=== PATIENT | male | born 1995 | race Caucasian/White ===

== ENCOUNTER 2018-06-02 18:38 | Emergency (ER) | payer BC ==
[~2018-06-02] VITALS: Ht 170.1 cm; Wt 77.1 kg
[~2018-06-02 18:38] MED LIST: CLARITIN10 MG PO; MOTRIN800 MG PO; ULTRAM50 MG PO; ZITHROMAX Z PA250 MG PO
== END 2018-06-02 19:49 | disposition home or self-care (01) ==
LOC: ED 18:38
DX: L50.9 Urticaria, unspecified (principal)

== ENCOUNTER 2018-06-18 17:08 | Emergency (ER) | payer BC ==
[~2018-06-18] VITALS: Ht 170.1 cm; Wt 77.1 kg
[2018-06-18 17:44] LABS: BASO % 0.3 % (0.0-1.0); EOS # 0.1 10*3/uL (0.0-0.4); EOS % 0.8 % (1.0-4.0); HEMATOCRIT 41.9 % (42.0-52.0); HEMOGLOBIN 13.7 g/dl (14.0-18.0); LYMPH # 1.4 10*3/uL (1.3-4.4); LYMPH % 13.2 % (27.0-41.0); MEAN CORPUSCULAR HGB 27.1 pg (27.0-31.0); MEAN CORPUSCULAR HGB CONC 32.7 g/dl (33.0-37.0); MEAN PLATELET VOLUME 11.2 fl (9.6-12.3); MONO # 0.8 10*3/uL (0.1-1.0); MONO % 7.1 % (3.0-9.0); NEUT # 8.5 10*3/uL (2.3-7.9); NEUT % 78.4 % (47.0-73.0); PLATELET COUNT AUTOMATED 241 10*3/uL (130-400); RED BLOOD COUNT 5.05 10*6/uL (4.50-5.90); RED CELL DISTRI WIDTH 12.7 % (0-14.5); WHITE BLOOD COUNT 10.9 10*3/uL (4.8-10.8)
[2018-06-18 18:03] LABS: ALBUMIN 4.3 gm/dl (3.1-4.5); ALKALINE PHOSPHATASE 112 U/L (45-117); BUN 19 mg/dl (7-24); CHLORIDE 106 mmol/L (98-107); CREATININE 0.94 mg/dL (0.70-1.30); SGOT/AST 9 IU/L (3-35); SGPT/ALT 18 U/L (12-78); SODIUM 140 mmol/L (136-145); TOTAL PROTEIN 8.2 gm/dL (6.4-8.2)
[2018-06-18] MEDS ORDERED: VALTREX1000 MG PO (19:23)
[2018-06-18] MEDS ORDERED: VIBRAMYCIN100 MG PO (19:23)
[2018-06-18] MEDS ORDERED: PREDNISONE10 MG PO (19:23)
[2018-06-23 11:03] LABS: IGG P18 AB Present (.); IGG P23 AB Present (.); IGG P28 AB Absent (.); IGG P30 AB Absent (.); IGG P39 AB Absent (.); IGG P41 AB Present (.); IGG P45 AB Absent (.); IGG P58 AB Absent (.); IGG P63 AB Absent (.); IGG P66 AB Absent (.); IGM P23 AB Present (.); IGM P39 AB Absent (.); IGM P41 AB Present (.); LYME IGG WB INTERPRETATION Negative (.); LYME IGM WB INTERPRETATION Positive (.)
[2018-06-23 12:10] LABS: LYME REFLEX CHARGE CHG
== END 2018-06-18 19:30 | disposition home or self-care (01) ==
LOC: ED 17:08
PROVIDERS: Physician Assistant
DX: G51.0 Bell's palsy (principal); M54.5 Low back pain

== ENCOUNTER 2022-12-31 22:35 | Inpatient (IN) | payer OTHER ==
[~2022-12-31] VITALS: Ht 172.7 cm; Wt 71.4 kg
[~2022-12-31 22:35] MED LIST changes: +PREDNISONE10 MG PO; +VALTREX1000 MG PO; +VIBRAMYCIN100 MG PO
[2022-12-31 22:45] VITALS: BP 149/73
[2022-12-31 23:24] LABS: BASO % 0.3 % (0.0-1.0); EOS # 0.1 10*3/uL (0.0-0.4); EOS % 0.9 % (1.0-4.0); HEMATOCRIT 39.5 % (42.0-52.0); LYMPH # 2.2 10*3/uL (1.3-4.4); LYMPH % 17.5 % (27.0-41.0); MEAN CELL VOLUME 80.9 fl (80.0-94.0); MEAN CORPUSCULAR HGB CONC 33.4 g/dl (33.0-37.0); MEAN PLATELET VOLUME 11.5 fl (9.6-12.3); MONO # 0.8 10*3/uL (0.1-1.0); MONO % 6.2 % (3.0-9.0); NEUT # 9.4 10*3/uL (2.3-7.9); NEUT % 74.9 % (47.0-73.0); PLATELET COUNT AUTOMATED 254 10*3/uL (130-400); RED BLOOD COUNT 4.88 10*6/uL (4.50-5.90); RED CELL DISTRI WIDTH 12.8 % (0-14.5); WHITE BLOOD COUNT 12.5 10*3/uL (4.8-10.8)
[2022-12-31 23:29] LABS: BILIRUBIN 1+ (Negative); BLOOD 3+ (Negative); CLARITY Cloudy (Clear); COLOR Orange (Yellow); GLUCOSE Negative (Negative); KETONE Trace (Negative); LEUKO ESTERASE 1+ (Negative); NITRITE Negative (Negative); PH 5.5 (4.5-8.0); SPECIFIC GRAVITY >= 1.030 (1.001-1.030)
[2022-12-31 23:49] LABS: ALKALINE PHOSPHATASE 63 U/L (46-116); BUN 16 mg/dl (9-23); CHLORIDE 104 mmol/L (98-107); POTASSIUM 3.7 mmol/L (3.4-5.1); SGPT/ALT 323 U/L (10-49); TOTAL PROTEIN 6.8 gm/dL (6.0-8.0)
[2022-12-31 23:50] LABS: MUCOUS 2+; WBC 16-20 wbc/hpf (0-5)
[2022-12-31 23:51] LABS: RBC 16-20 rbc/hpf (0-2)
[2022-12-31 23:54] LABS: CPK > 39000 U/L (34-171)
[2023-01-01 02:58] VITALS: BP 123/71
[2023-01-01 04:45] VITALS: BP 144/88
[2023-01-01 05:40] LABS: ALKALINE PHOSPHATASE 55 U/L (46-116); BUN 12 mg/dl (9-23); CHLORIDE 108 mmol/L (98-107); CHOLESTEROL 91 mg/dL (<200); LDL CHOLESTEROL 47 mg/dL (9-159); POTASSIUM 4.4 mmol/L (3.4-5.1); SGPT/ALT 295 U/L (10-49); THYROID STIM HORMONE (HS) 1.465 uIU/ml (0.550-4.780); TOTAL PROTEIN 5.9 gm/dL (6.0-8.0); TRIGLYCERIDES 47 mg/dl (<150)
[2023-01-01 05:44] LABS: CPK > 39000 U/L (34-171); MYOGLOBIN 6323.2 ng/ml (16-116)
[2023-01-01 06:16] LABS: BASO % 0.2 % (0.0-1.0); EOS # 0.1 10*3/uL (0.0-0.4); EOS % 1.4 % (1.0-4.0); HEMATOCRIT 37.5 % (42.0-52.0); LYMPH # 2.4 10*3/uL (1.3-4.4); LYMPH % 28.8 % (27.0-41.0); MEAN CELL VOLUME 82.1 fl (80.0-94.0); MEAN CORPUSCULAR HGB 26.9 pg (27.0-31.0); MEAN CORPUSCULAR HGB CONC 32.8 g/dl (33.0-37.0); MEAN PLATELET VOLUME 11.8 fl (9.6-12.3); MONO # 0.5 10*3/uL (0.1-1.0); MONO % 5.4 % (3.0-9.0); NEUT # 5.3 10*3/uL (2.3-7.9); PLATELET COUNT AUTOMATED 210 10*3/uL (130-400); RED BLOOD COUNT 4.57 10*6/uL (4.50-5.90); RED CELL DISTRI WIDTH 12.7 % (0-14.5); WHITE BLOOD COUNT 8.3 10*3/uL (4.8-10.8)
[2023-01-01 08:00] VITALS: BP 142/89
[2023-01-01 08:07] LABS: VITAMIN D, 25-HYDROXY 21.8 ng/mL (30-100)
[2023-01-01 12:00] VITALS: BP 138/79
[2023-01-01 16:00] VITALS: BP 153/66
[2023-01-01 20:00] VITALS: BP 125/69
[2023-01-02] VITALS: BP 132/68
[2023-01-02 06:21] LABS: ALKALINE PHOSPHATASE 57 U/L (46-116); BUN 7 mg/dl (9-23); CHLORIDE 108 mmol/L (98-107); SGPT/ALT 317 U/L (10-49); TOTAL PROTEIN 6.3 gm/dL (6.0-8.0)
[2023-01-02 06:22] LABS: MYOGLOBIN 2222.5 ng/ml (16-116)
[2023-01-02 06:35] LABS: BASO % 0.3 % (0.0-1.0); EOS # 0.2 10*3/uL (0.0-0.4); EOS % 1.7 % (1.0-4.0); HEMATOCRIT 40.7 % (42.0-52.0); LYMPH # 1.9 10*3/uL (1.3-4.4); LYMPH % 21.6 % (27.0-41.0); MEAN CELL VOLUME 81.2 fl (80.0-94.0); MEAN CORPUSCULAR HGB 27.1 pg (27.0-31.0); MEAN CORPUSCULAR HGB CONC 33.4 g/dl (33.0-37.0); MEAN PLATELET VOLUME 11.9 fl (9.6-12.3); MONO # 0.5 10*3/uL (0.1-1.0); NEUT # 6.2 10*3/uL (2.3-7.9); NEUT % 70.1 % (47.0-73.0); PLATELET COUNT AUTOMATED 242 10*3/uL (130-400); RED BLOOD COUNT 5.01 10*6/uL (4.50-5.90); RED CELL DISTRI WIDTH 12.7 % (0-14.5); WHITE BLOOD COUNT 8.8 10*3/uL (4.8-10.8)
[2023-01-02 08:00] VITALS: BP 123/73
[2023-01-02 12:00] VITALS: BP 120/86
[2023-01-02 16:00] VITALS: BP 118/75
[2023-01-02 20:00] VITALS: BP 118/68
[2023-01-03] VITALS: BP 128/78
[2023-01-03 06:33] LABS: ALKALINE PHOSPHATASE 60 U/L (46-116); BUN 9 mg/dl (9-23); CHLORIDE 107 mmol/L (98-107); POTASSIUM 4.2 mmol/L (3.4-5.1); SGPT/ALT 315 U/L (10-49); TOTAL PROTEIN 6.6 gm/dL (6.0-8.0)
[2023-01-03 06:35] LABS: CPK 34927 U/L (34-171); MYOGLOBIN 1009.4 ng/ml (16-116)
[2023-01-03 08:00] VITALS: BP 146/62
[2023-01-03 11:06] LABS: HBSAG Negative (Negative); HEP B CORE AB, IGM Negative (Negative); HEPATITIS C ANTIBODY Non Reactive (Non Reactive)
== END 2023-01-03 08:20 | disposition left against medical advice (07) | DRG 558 ==
LOC: ED 22:35 → EDHOLD 01-01 00:10 → 5E 01-01 00:10
PROVIDERS: Family Medicine; Internal Medicine; ADMIT Family Medicine; ATTEND Family Medicine
DX: M62.82 Rhabdomyolysis (principal); D64.9 Anemia, unspecified; D72.829 Elevated white blood cell count, unspecified; R74.01 Elevation of levels of liver transaminase levels; E87.8 Other disorders of electrolyte and fluid balance, not elsewhere classified; R73.9 Hyperglycemia, unspecified; E55.9 Vitamin D deficiency, unspecified; Z53.29 Procedure and treatment not carried out because of patient's decision for other reasons